=== PATIENT | male | born 1945 | race Caucasian/White ===

== ENCOUNTER 2024-12-29 14:55 | Outpatient (CLI) | payer MEDICARE, BC, SELFPAY ==
--- NOTE | 2024-12-29 15:30 | MR_ITS ---
[facility] [address] [facility] [address] Phone:?[phone] Fax:?[phone] Referring Physician Information: Reggie López M.D. [address] [facility] [address] Phone:?[phone] Fax:?[phone] Patient:Igor Burton D.O.B:?1945 Sex:?Male Phone:?[phone] [facility] MRN:?[id number] Exam Date:?12/29/2024 EXAM: MRI of the RIGHT KNEE, without contrast CLINICAL HISTORY: Ongoing right knee pain. Suspected sprain of medial collateral ligament of right knee. COMPARISONS: Plain radiographs 12/12/2024. TECHNICAL: MR sequences of the right knee: sagittals: PD, PDFS coronals: PD, STIR axials: PD, T2 FS CONTRAST: None SEDATION: None FINDINGS: Bones: No fracture or destructive osseous lesion. 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 Retinacula: The medial and lateral retinacula are intact. Fat pads: The infrapatellar, quadriceps, and prefemoral fat pads are unremarkable. Knee joint: Effusion: Moderate right knee joint effusion. Popliteal cyst: None. Intra-articular bodies: None. Posteromedial corner: Unremarkable. Medial compartment: Medial meniscus: 3.5 cm in length inferiorly surfacing oblique flap tear from the body through posterior horn of the medial meniscus. Cartilage: Broad-based grade II chondromalacia over the weight-bearing portion of the medial femoral condyle. Lateral compartment: Lateral meniscus: Intact. Cartilage: 5 x 5 mm area of grade II to III chondromalacia over the most posterior portion of the lateral tibial plateau. Ligaments: Anterior cruciate ligament: Intact. Posterior cruciate ligament: Complete tear of the posterior cruciate ligament. Medial collateral ligament: Grade 2 partial tear of the proximal portion of the superficial component of the medial collateral ligament. Ill-defined tear of the deep meniscofemoral component of the medial collateral ligament. Posterior oblique ligament: Intact. Fibular collateral ligament: Intact. Posterolateral corner: The distal biceps femoris tendon, iliotibial band, popliteus tendon, popliteofibular ligament, and arcuate ligament are intact. There is edema-like signal within the popliteus muscle. Extensor mechanism: Patellar tendon: Intact. Quadriceps tendon: Intact. IMPRESSION: 1. Complete tear of the posterior cruciate ligament. 2. Grade 2 partial tear of the proximal portion of the superficial component of the medial collateral ligament. Ill-defined tear of the deep meniscofemoral component of the medial collateral ligament. 3. 3.5 cm in length inferiorly surfacing oblique flap tear from the body through posterior horn of the medial meniscus. 4. 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 5. Broad-based grade II chondromalacia over the weight-bearing portion of the medial femoral condyle. 6. 5 x 5 mm area of grade II to III chondromalacia over the most posterior portion of the lateral tibial plateau. 7. Grade 1 popliteus muscle strain. 8. Moderate right knee joint effusion. 9. No lateral meniscal pathology of the right knee. RCB Electronically signed on 12/30/2024 8:05:00 AM by Bryan Cee M.D.
--- OUTSIDE RECORDS SUMMARY | 2024-12-30 00:53 | XMS_ITS | Clinical Summary ---
Author Organization [employer] [facility] Address [address] [place] [id number] Care Team Providers Care Peanut Vendor Name Role Phone Pcp, No Primary Care Provider Unavailabl e Allergies Active Allergy Reactions Criticality Noted Date Comments Amoxicillin-Pot Clavulanate Nausea Only 07/11/2006 Azithromycin Other - Describe In Comment Field 08/21/2016 Erythromycin Nausea Only 07/11/2006 Oxybutynin GI Upset,Other - Describe In Comment Field 01/31/2017 Metallic taste Brand name Detrol OK Oxycodone Hallucinations 05/13/2018 Medications melatonin 3 mg tablet Take 1 tablet by mouth at bedtime. 0 09/07/19 15 Active meclizine (ANTIVERT) 25 mg tabletIndications: Dizzy spells Take 1 tablet by mouth 3 times daily if needed for Vertigo. 270 tablet 1 10/17/19 16 Active artificial tears, peg 400-propylene glycol, (SYSTANE, PROPYLENE GLYCOL,) 0.4-0.3 % drop ophthalmic Place 1 Drop into both eyes every 2 hours if needed for Dry Eyes. Active clonazePAM (KLONOPIN) 0.5 mg tabletIndications: Chronic anxiety,Chronic insomnia TAKE by mouth 3 TABS AT BEDTIME. MAY CRUSH. 90 tablet. 2 08/05/19 21 Active DULoxetine (CYMBALTA) 60 mg Delayed-release capsuleIndications :Chronic anxiety Take 1 capsule by mouth once daily. 90 capsule. 1 07/22/19 21 Active gabapentin (NEURONTIN) 600 mg tabletIndications: Dizzy spells Take 1 tablet by mouth 3 times daily. 270 tablet. 1 07/22/19 Active Additional Information Patient taking differently: 900 mgOral TID, Reported on 01/31/2024 lamoTRIgine (LAMICTAL) 150 mg tabletIndications: Chronic anxiety TAKE 1/2 TABLET (75MG) BY MOUTH ONCE DAILY 45 tablet. 1 07/22/19 Active Additional Information Patient taking differently: 150 mg, (No instructions reported), Reported on 01/31/2024 QUEtiapine (SEROQUEL) 25 mg tabletIndications: Chronic anxiety,Chronic insomnia Take 3 tablets by mouth at bedtime. 270 tablet. 1 07/22/19 Active simvastatin (ZOCOR) 40 mg tabletIndications: Hyperlipidemia, unspecified hyperlipidemia type Take 1 tablet by mouth once daily with evening meal. 90 tablet. 1 07/22/19 Active temazepam (RESTORIL) 15 mg capsuleIndications :Chronic anxiety,Chronic insomnia Take 1 capsule by mouth at bedtime. 90 capsule. 1 08/05/19 Active fluticasone (50 mcg per actuation) nasal solution (FLONASE)Indicatio ns:Nasal congestion 1 SPRAY INTO BOTH NOSTRILS ONCE DAILY. 48 g 2 09/11/19 Active Additional Information Patient taking differently: 2 [place] Nasal DAILY PRN, Rhinitis, Reported on 01/22/2024 dimenhyDRINATE (DRAMAMINE) 50 mg tablet Take 50 mg by mouth every 6 hours if needed. Active diphenoxylate-atro pine, 2.5-0.025 mg, (LomotiL) 2.5-0.025 mg tablet Take 1 Tablet by mouth 4 times daily if needed for Diarrhea. Active metoprolol tartrate (LOPRESSOR) 50 mg tablet Take 50 mg by mouth two times daily. Active tamsulosin (Flomax) 0.4 mg capsule Take 0.4 mg by mouth once daily after a meal. Active tiZANidine (ZANAFLEX) 4 mg capsule Take 4 mg by mouth at bedtime if needed for Muscle Spasm. Active WalkerIndications: Primary osteoarthritis of left knee Walker with front wheels for home use. Length of need: 99 months 1 Each 02/04/20 Active HYDROcodone-acetam inophen (5-325 mg/tablet)Indicati ons:Primary osteoarthritis of left knee Take 1 Tablet by mouth every 4 hours if needed for Pain. Max acetaminophen dose: 4000 mg in 24 hrs. 42 Tablet 02/04/20 24 Active Active Problems Problem Noted Date Diagnosed Date Primary osteoarthritis of left knee 02/02/2024 Primary osteoarthritis of one knee, left 024 At risk for polypharmacy 03/14/2020 Depression, major, single episode, severe 2019 Greater trochanteric bursitis of both hips, righ t > left 04/23/2018 Bilateral buttock pain 04/23/2018 Radiating pain 04/23/2018 S/P trigger finger release 03/05/2018 Trigger middle finger of left hand 03/05/2018 Right wrist pain 03/05/2018 Bilateral hip pain 03/05/2018 Synovial cyst 10/10/2017 Spinal stenosis of lumbar region 08/22/2017 Lumbar foraminal stenosis, moderate to severe at L5-S1 08/22/2017 Spondylolisthesis of lumbar region, 4mm retrolisthesis L2-3 & L3-4 08/22/2017 FH: colon cancer 10/17/2016 Well controlled type 2 diabetes mellitus 016 Herpes simplex 09/06/2014 Excessive sweating 05/11/2013 Dizzy spells 05/11/2013 Overview (05/11/2013): Followed by Neurology Dysthymic disorder 07/11/2006 Overview (07/11/2006): Followed every three [address] David Underwood in [place] Allergic rhinitis, cause unspecified 07/11/2006 Palpitations 07/11/2006 Overview (07/11/2006): Benign but strongly symptomatic Unspecified hemorrhoids without mention of compl ication 07/11/2006 Other and unspecified hyperlipidemia 07/11/2006 Herpes simplex Diabetes mellitus type 2, controlled Anxiety disorder Diarrhea Encounters Date Type Department Care Team Description 12/12/2024 11:33 AM CDT - 12/12/2024 1:55 PM CDT Emergency [facility] [address] [place] [address] Da Goodwin DO Acute pain of right knee (Primary Dx) Discharge Disposition: Home Self Care 12/12/2024 Travel 10/05/2024 Transcribe Orders [facility] [address] [address] Magnus Wadsworth MBBS from Last 3 Months Immunizations Immunization Administration Dates Next Due AMB Influenza, IIV3 (Age >=3 years)(Flu Clinic Only) 05/01/2008 Hepatitis B (Adult) 06/21/1995 Influenza, High-dose Inactivated 04/16/2019,04/07,04/16/2014 Influenza, IIV3 (Age >=3 years) 04/16/20 19,06/05/2012,04/25/2011,2009,05/14/2007,08/29/2006 Influenza, Inactivated AIIV4 (Age 65+ Years) Preserv Free 04/07/2020 Influenza, Inactivated IIV3 (Age 65+ Years) Preserv Free 03/28/2018,04/11/2017 Pneumococcal Poly,23-Valent (Pneumovax) 05/11/2013 Pneumococcal conj 13-Valent (Prevnar 13) 09/06/2014 Td (Age >=7 Years) 05/23/2005 Tdap 06/05/2012 Zoster (Shingrix-RZV, recombinant) 08/18/2018, Zoster (Zostavax-ZVL, live) 06/05/2012 Family History Medical History Relation Name Comments Cancer Father Throat, late 60 s (2 ppd smoker) Cancer-colon Mother age 59 Heart Disease Other congenital, 7 heart surgies: granddaughter Anesthesia Problem No Family History Clotting disorder No Family History Relation Name Status Comments Father (Age 70s) Mother (Age 56) Other Social History Tobacco Use Types Packs/Day Years Used Date Smoking Tobacco: Former Cigarettes 1 20 0 12/06/1976 - 12/06/1996 Passive Smoke Exposure: Past Smokeless Tobacco: Never Tobacco Cessation:Counseling Given: Not Answered Alcohol Use Standard Drinks/Week Comments No 0 (1 standard drink = 0.6 oz pur e alcohol) PHQ-2 Answer Date Recorded PHQ-2 TOTAL SCORE 2 03/09/2020 Social Connections Answer Date Recorded Frequency of Communication with Friends and Fami ly Not on file 07/08/2021 Financial Resource Strain Answer Date R ecorded Difficulty of Paying Living Expenses Not on file 07/08/2021 Difficulty of Paying Living Expenses Not on file 07/08/2021 Interpersonal Safety Answer Date Record ed Are you being hit, kicked, p ushed or yelled at (see row info)? 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 Gender Identity Not on file Sexual Orientation Not on file Occupation Industry Job Start Date Job End Date retired Not on file Not on file Not on file Obstetrics History Last Filed Vital Signs Vital Sign Reading Time Taken Comments Blood Pressure 119/69 12/12/2024 12:00 PM CDT Pulse 68 12/12/2024 12:00 PM CDT Temperature 36.8 C (98.2 F) 12/12/2024 11:36 AM CDT Respiratory Rate 18 12/12/2024 11:36 AM CDT Oxygen Saturation 93% 12/12/2024 12:00 PM CDT Inhaled Oxygen Concentration - - Weight 94.8 kg (209 lb) 12/12/2024 11:36 AM CDT Height 172.7 cm (5' 8) 12/12/2024 11:36 AM CDT Body Mass Index 31.78 12/12/2024 11:36 AM CDT Plan of Treatment Health Maintenance Due Date Last Done Comments Hepatitis B series for 19+ ( 2 of 3 - 19+ 3-dose series) 07/19/1995 06/21/1995 Depression screening for age 12+ 03/09/2021 03/09/2020, 12/15/2018, 10/23/2017, Additional history exists BMI (ht and wt on same day) for age 18+ 04/07/2021 04/07/2020, 01/05/2020, 07/21/2019, Additional history exists Tetanus booster 06/05/2022 06/05/2012, 05/23/2005 RSV vaccine for adults or (1 - 1-dose 75+ series) 2022 COVID-19 vaccine series ( season) 2024 04/29/2024, 06/16/2021, 11/26/2020, Additional history exists Influenza Vaccine (Season Ended) 2025 04/07/2020, 04/16/2019, 04/16/2019, Additional history exists Tdap Completed 06/05/2012 Pneumococcal series for age 50+ Completed 5, 05/11/2013 Hepatitis C screening for ag e 18-79 Completed 01/31/2017 Zoster (shingles) series for age 50+ Completed 08/18/2018, 04/07/2018, 06/05/2012 Medical Devices Implanted Type Area Sas Developer Device Identifier Shelf Expiration Date Model / Serial / Lot [id number] Matrix 3cc [place] Dbf Putty Dbm Implanted:Qty: 1 on 06/27/2018 by Christiana Franco MD at [facility] Explanted:at [facility] (Quantity not on file) N/A: Spine Medtronic Spine/Ortho 01/20/2020 [id number] / [id number] / [id number] 1-4mm 30cc Medtronic Chips Canclls Freeze Dried Implanted:Qty: 1 on 06/27/2018 by Christiana Franco MD at [facility] Explanted:at [facility] (Quantity not on file) N/A: Spine Medtronic Spine/Ortho 11/25/2022 [id number] / [id number] / Spacer Lmbr [id number] [place] Convex Stra Plif - [id number] Implanted:Qty: 1 on 06/27/2018 by Christiana Franco MD at [facility] N/A: Spine [employer] 03/07/2023 [id number] / / [id number] Set Screw Lmbr 5.5-6mm Vitality Torque - [id number] Implanted:Qty: 4 on 06/27/2018 by Christiana Franco MD at [facility] N/A: Spine [employer] Spine 07.27996.0 01# / / Nabil Lmbr 45x5.5mm Vitality Cvd Titnm - [id number] Implanted:Qty: 2 on 06/27/2018 by Christiana Franco MD at [facility] N/A: Spine [employer] Spine 07.25430.0 06# / / Baseplate Tib Univ Sz 7 Triathlon Keeled Ingrowth Pors Tritan - [id number] Implanted:Qty: 1 on 02/04/2024 by Kevyn Delaney MD at [facility] Left: Knee [employer] 06/22/2028 [id number] / / [id number] Patella [id number] Triathlon Tritanium Symmetrical Metal Backed - [id number] Implanted:Qty: 1 on 02/04/2024 by Kevyn Delaney MD at [facility] Left: Knee [employer] 09/15/2028 [id number] / / [id number] Fem Lt 7 Triathlon Beaded W/Pa - [id number] Implanted:Qty: 1 on 02/04/2024 by Kevyn Delaney MD at [facility] Left: Knee [employer] 09/11/2028 [id number] / / [id number] Insert Tib Sz 7 9mm Knee X3 Condylar Stabilizing Triathlon - [id number] Implanted:Qty: 1 on 02/04/2024 by Kevyn Delaney MD at [facility] Left: Knee [employer] 06/09/2028 [id number] / / [id number] Explanted Type Area Sas Developer Device Identifier Shelf Expiration Date Model / Serial / Lot Pin Bone Fix [id number] Strl - [id number] Explanted:Qty: 1 on 02/04/2024 by Kevyn Delaney MD at [facility] Left: Knee [place] [employer] 09/18/2028 [id number] / / [id number] Pin Bone Fix [id number] - [id number] Explanted:Qty: 1 on 02/04/2024 by Kevyn Delaney MD at [facility] Left: Knee [place] [employer] [id number] / / Procedures Procedure Name Priority Date/Time Associated Diagnosis Comments XR KNEE 4 VIEWS RIGHT STAT 12/12/2024 12:14 PM CDT ANTI HCV Routine 01/31/2017 3:16 PM CDT Need for hepatitis C screening test from Last 3 Months or Most Recently Relevant to Health Maintenance Results * XR KNEE 4 VIEWS RIGHT (12/12/2024 12:14 PM CDT) Anatomical Region Laterality Modality KNEES, KNEE R Digital Radiogra phy us Da Hernandezmarco Goodwin DO GENERAL IMAGING Final Resul t * ANTI HCV (01/31/2017 3:16 PM CDT) HEPATITIS C ANTIBODY Non-Reacti ve Non-Reacti ve 01/31/2017 7:55 PM CDT [facility] Blood BLOOD SPECIMEN / Unknown Venipuncture / Unknown 01/31/2017 3:16 PM CDT 01/31/2017 3:16 PM CDT Narrative [facility] - 01/31/2017 7:55 PM CDT Antibodies to HCV not detected; does not exclude the possibility of exposure to HCV. Romario Joyce DO SEND OUTS Final Res ult [facility] [address] [place] [address], from Last 3 Months or Most Recently Relevant to Health Maintenance Insurance MEDICARE PART A HB ONLY MEDICARE PART B HB ONLY [facility] HC MEDICARE PPS Advance Directives Documents on File Type Date Recorded Patient Oxygen Therapy Technician Expl anation Healthcare Directive 10/27/2015 8:52 AM 10/15/15 * Full Code (Latest Code Status on File) Date Activated Date Inactivated Comments 02/04/2024 6:05 AM 02/04/2024 5:25 PM Question Answer Comments Code Status Discussion: Not Discussed * Full Code Date Activated Date Inactivated Comments 05/04/2020 8:57 AM 05/04/2020 1:19 PM Question Answer Comments Code Status Discussion: Per Existing Order * Full Code Date Activated Date Inactivated Comments 06/27/2018 2:13 PM 06/29/2018 1:18 PM * Full Code Date Activated Date Inactivated Comments 05/13/2018 9:54 AM 05/13/2018 4:15 PM * Full Code Date Activated Date Inactivated Comments 02/24/2018 6:52 AM 02/24/2018 12:19 PM Question Answer Comments Code Status Discussion: Discussed Care Teams Peanut Vendor Relationship Specialty Start Date End Date Pcp, No . PCP - General 01/21/24
== END 2024-12-29 14:56 | disposition home or self-care (01) ==
PROVIDERS: PCP Family Medicine; Visit Provider Orthopaedic Surgery Sports Medicine
DX: M25.561 Pain in right knee (principal); S83.521A Sprain of posterior cruciate ligament of right knee, initial encounter; S83.241A Other tear of medial meniscus, current injury, right knee, initial encounter; M94.261 Chondromalacia, right knee; S86.811A Strain of other muscle(s) and tendon(s) at lower leg level, right leg, initial encounter; M25.461 Effusion, right knee
CPT/HCPCS: 73721